=== PATIENT | female | born 1935 | race Caucasian/White ===

== ENCOUNTER → 2016-07-16 | Outpatient (CLI) | payer OTHER, MEDICAID ==
[2015-09-10 13:56] VITALS: BP 107/64
--- NOTE | 2016-07-16 10:53 | CT ---
HISTORY: Left lower quadrant pain for 5 weeks Study: CT abdomen and pelvis with oral contrast Comparison: June 30, 2015 Technique: Multiple axial images of the abdomen and pelvis were obtained from the lung bases to the pubic symph ysis without the administration of IV contrast. Sagittal and coronal reformations were provided. Findings: The visualized portions of the lung bases are unremarkable. There is a 1.8 centimeters cyst in the upper pole of the left kidney. There are several small left renal calculi in the upper pole. There i s no hydronephrosis. There is a tiny calculus in the lower pole of the left kidney. The liver and sp cora and pancreas and adrenal glands are unremarkable.. The gallbladder is unremarkable in its CT ap pearance. No significant mesenteric lymphadenopathy or stranding can be observed. No free fluid or free air is seen within the abdomen. The appendix is normal. No bowel wall thickening or bowel dil atation is present. There is mild sigmoid diverticulosis. There is diverticular disease in the desc ending colon. No inflammatory changes are demonstrated. The uterus is small. There is no adnexal mas s.. There is a cystocele. The bony structures are grossly intact. IMPRESSION: 1. Cystocele 2. Tiny left renal calculi, no hydronephrosis 3. Diverticulosis without evidence for inflammation. Reported By:
== END ==
LOC: RAD 09:52
PROVIDERS: ATTEND Internal Medicine Gastroenterology
DX: R10.32 Left lower quadrant pain (principal); N20.0 Calculus of kidney; K57.90 Diverticulosis of intestine, part unspecified, without perforation or abscess without bleeding
CPT/HCPCS: 74176